=== PATIENT | female | born 1950 | race Caucasian/White ===

== ENCOUNTER → 2018-02-17 | Outpatient (CLI) | payer OTHER ==
[~2018-02-17] MED LIST: ALENDRONATE SOD70 MG PO; ARMOUR THYROID15 M1; HYDROCODONE-AP1 EAC6 PO; LEVOTHYROXIN0.075 MG PO; LIPITOR20 MG; METHOCARBAMOL500 M2 PO; NAPROSYN500 MG PO; NORCO 5-325 TA1 EACH PO; PRAVACHOL40 MG PO; TRAMADOL 50 MG50 MG PO
[2018-02-17 08:23] LABS: CREATININE 0.8 mg/dL (0.6-1.0)
== END ==
LOC: CAT 07:34
PROVIDERS: Nurse Practitioner
DX: J98.11 Atelectasis (principal); I25.10 Atherosclerotic heart disease of native coronary artery without angina pectoris; I70.0 Atherosclerosis of aorta; I70.1 Atherosclerosis of renal artery; R91.8 Other nonspecific abnormal finding of lung field

== ENCOUNTER → 2018-03-09 | Outpatient (CLI) | payer OTHER ==
[~2018-03-09] VITALS: Ht 157.5 cm; Wt 83.0 kg
[2018-03-09] VITALS (9 sets, daily range): BP systolic 116–140; BP diastolic 54–95
[~2018-03-09] MED LIST changes: +ADVAIR 100-501 EACH INH; +CALCIUM 600 +1 EAC1 PO; +CENTRUM SILVER1 EAC4 PO; +FLONASE 0.05%50 MCG NASAL; +PRAMIPEXOLE D0.25 MG PO; +PROAIR HFA8.5 GM INH; +SYNTHROID75 MCG PO
[2018-03-09 10:02] LABS: HEMATOCRIT 42.6 % (37.0-47.0); HEMOGLOBIN 14.8 gm/dL (12.0-15.0); MCH 32.9 pg (26.0-34.0); MCHC 34.8 g/dL (28.0-37.0); MCV 94.5 fL (80.0-100.0); RBC 4.51 mil/uL (4.20-5.00); RDW 11.8 % (10.5-14.5); WBC 3.7 thou/uL (4.0-11.0)
[2018-03-09 10:15] LABS: APTT 27.7 Seconds (24.5-32.8); PROTIME 10.6 Seconds (9.3-11.4)
[2018-03-09 10:17] LABS: CALCIUM 9.5 mg/dL (8.5-10.1); CREATININE 0.8 mg/dL (0.6-1.0); POTASSIUM 3.9 mmol/L (3.5-5.1)
== END | disposition home or self-care (01) ==
LOC: CAT 09:19
PROVIDERS: Radiology Diagnostic Radiology
DX: J93.9 Pneumothorax, unspecified (principal); R04.89 Hemorrhage from other sites in respiratory passages; K21.9 Gastro-esophageal reflux disease without esophagitis; E78.5 Hyperlipidemia, unspecified; E03.9 Hypothyroidism, unspecified; Z90.49 Acquired absence of other specified parts of digestive tract; Z98.890 Other specified postprocedural states; Z82.49 Family history of ischemic heart disease and other diseases of the circulatory system; Z79.01 Long term (current) use of anticoagulants; Z79.899 Other long term (current) drug therapy; Z87.891 Personal history of nicotine dependence

== ENCOUNTER → 2018-03-12 | Outpatient (CLI) | payer OTHER | LOC: RAD 09:28 | DX: J93.9 Pneumothorax, unspecified (principal); R91.8 Other nonspecific abnormal finding of lung field ==

== ENCOUNTER 2018-09-22 12:35 | Inpatient (IN) | payer OTHER ==
[~2018-09-22] VITALS: Ht 152.4 cm; Wt 89.2 kg
[2018-09-22 12:37] VITALS: BP 146/69
--- NOTE | 2018-09-22 13:49 | NUR ---
ONE ATTEMPT BY THIS NURSE FOR IV WITHOUT SUCCESS. NOTIFIED FOR SOMEONE TO USE ULTRASOUND FOR IV INSERTION.
[2018-09-22 14:00] LABS: BASOPHILS 0.8 % (0.0-2.0); EOSINOPHILS 1.6 % (0.0-3.0); HEMATOCRIT 45.3 % (37.0-47.0); HEMOGLOBIN 15.5 gm/dL (12.0-15.0); LYMPHOCYTES 36.7 % (24.0-44.0); MCH 33.3 pg (26.0-34.0); MCHC 34.3 g/dL (28.0-37.0); MCV 97.1 fL (80.0-100.0); PLATELET COUNT 270 thou/uL (150-400); POLYS 50.9 % (36.0-66.0); RBC 4.67 mil/uL (4.20-5.00); RDW 12.4 % (10.5-14.5); WBC 3.8 thou/uL (4.0-11.0)
--- NOTE | 2018-09-22 14:00 | EKG ---
[address] [place] [employer] [place] [address] ELECTROCARDIOGRAM REPORT Name: ELISABET BALL Room #: REG [facility]#: [id number] Admission: 09/22/18 Attend Phys: Discharge: Date of : 50 Report #: [id number] THIS REPORT FOR: //name// [facility] ED Test Date: 2018-09-22 Test Time: 12:54:45 Pat Name: ELISABET BALL Department: Room: Gender: F [employer] Tractor Operator: BIRD : 1950 Requested By: Cuco López Order Number: [id number] MD: Gerry Weiner Measurements Intervals [place] Rate: 82 P: 61 WY: 113 QRS: 58 QRSD: 99 T: 10 QT: 351 QTc: 410 Interpretive Statements Sinus rhythm Borderline short [place] interval No previous ECG available for comparison Electronically Signed On 09-22-2018 14:00:16 [employer] by Gerry Weiner [email or web address] <ELECTRONICALLY SIGNED> By: Gerry Weiner MD 09/22/18 1400 1254 1254 MD LEATHA Morrison
[2018-09-22 15:28] LABS: ANION GAP 7 mmol/L (7-16); BUN 12 mg/dL (7-18); CALCIUM 9.7 mg/dL (8.5-10.1); CHLORIDE 100 mmol/L (98-107); CO2 31 mmol/L (21-32); CREATININE 0.9 mg/dL (0.6-1.0); GLUCOSE 100 mg/dL (74-106); POTASSIUM 4.3 mmol/L (3.5-5.1); SODIUM 138 mmol/L (136-145)
[2018-09-22 15:37] LABS: DIRECT BILIRUBIN 0.2 mg/dL (<0.1-0.3); LIPASE 111 U/L (73-393); SGOT 28 U/L (15-37); SGPT 28 U/L (30-65); TOTAL BILIRUBIN 0.9 mg/dL (<0.1-1.0); TOTAL PROTEIN 8.2 g/dL (6.4-8.2); TROPONIN-I <0.06 ng/mL (<0.06)
[2018-09-22 16:49] VITALS: BP 95/58
[2018-09-22 17:26] VITALS: BP 124/55; BP 129/49; BP 132/53
[2018-09-22 19:45] VITALS: BP 128/53
[2018-09-22 19:46] VITALS: BP 152/64
[2018-09-22 19:48] VITALS: BP 167/65
[2018-09-22] MEDS ORDERED: LIDODERM1 EACH TOP (20:27)
[2018-09-23 00:37] VITALS: BP 149/60
[2018-09-23 04:29] VITALS: BP 113/41
[2018-09-23 07:07] VITALS: BP 141/52
[2018-09-23] MEDS ORDERED: ZOFRAN ODT4 MG DISSOLVE (12:35)
[2018-09-23 12:40] VITALS: BP 141/52
--- NOTE | 2018-09-23 13:34 | NUR ---
PT ADMITTED RELATED TO CHEST PAIN, VERTIGO. CM REVIEWED CHART AND SPOKE WITH CARE TEAM. CM MET WITH PT AND SPOUSE AT BEDSIDE THIS DAY. PT IS A&O X4. CM ROLE INTRODUCED. PT RESIDES IN A HOUSE WITH HER SPOUSE WITH 15 STEPS TO ENTER AND NO STEPS INSIDE. 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 PT INDICATED NO HOR DME HX. PT PLANS TO RETURN HOME ONCE MEDICALLY STABLE. CM TO FOLLOW INDICATED WITH SOCO P;CAMERON.
== END 2018-09-23 13:40 | disposition home or self-care (01) | DRG 391 ==
LOC: ER 12:35 → EROBS 16:28 → 4W 16:28
PROVIDERS: Emergency Medicine; ADMIT Family Medicine
DX: K52.9 Noninfective gastroenteritis and colitis, unspecified (principal); E43 Unspecified severe protein-calorie malnutrition; I95.1 Orthostatic hypotension; G62.9 Polyneuropathy, unspecified; E03.9 Hypothyroidism, unspecified; Z90.49 Acquired absence of other specified parts of digestive tract; Z79.899 Other long term (current) drug therapy; Z87.891 Personal history of nicotine dependence
CPT/HCPCS: 10045

== ENCOUNTER → 2018-11-04 | Outpatient (CLI) | payer OTHER ==
[~2018-11-04] MED LIST changes: +LIDODERM1 EACH TOP; +ZOFRAN ODT4 MG DISSOLVE
== END ==
LOC: CAT 09:09
DX: I25.10 Atherosclerotic heart disease of native coronary artery without angina pectoris (principal); R91.1 Solitary pulmonary nodule

== ENCOUNTER → 2019-01-20 | Outpatient (CLI) | payer OTHER | LOC: NUC 13:01 | DX: M85.89 Other specified disorders of bone density and structure, multiple sites (principal); E28.39 Other primary ovarian failure; M19.90 Unspecified osteoarthritis, unspecified site; Z78.0 Asymptomatic menopausal state ==

== ENCOUNTER → 2019-02-03 | Outpatient (CLI) | payer OTHER | LOC: MRI 10:39 | DX: M51.26 Other intervertebral disc displacement, lumbar region (principal) ==

== ENCOUNTER → 2019-12-17 | Outpatient (CLI) | payer OTHER | LOC: CAT 09:13 | DX: R91.1 Solitary pulmonary nodule (principal); I25.10 Atherosclerotic heart disease of native coronary artery without angina pectoris; R59.0 Localized enlarged lymph nodes; Z90.49 Acquired absence of other specified parts of digestive tract ==

== ENCOUNTER → 2021-02-26 | Outpatient (CLI) | payer OTHER | LOC: ULTRA 10:23 | PROVIDERS: ATTEND Family Medicine | DX: E07.9 Disorder of thyroid, unspecified (principal) ==